=== PATIENT | female | born 1940 | race Caucasian/White ===

== ENCOUNTER 2017-07-14 20:33 | Inpatient (IN) | payer MEDICARE ==
[~2017-07-14] VITALS: Ht 154.9 cm; Wt 55.4 kg
[~2017-07-14 20:33] MED LIST: ALLO100T PO; ASPI81TA2 PO; CARI350T PO; CARI350T27 PO; CHOL100040 PO; COLC0.6T69 PO; CYAN250010 PO; DICL100G3 TP; DIPH25CA83 PO; ESZO2TAB30 PO; GABA-532 PO; LEVO88TA5 PO; LOSA-22 PO; METO-302 PO; OMEG500C PO; OMEP20CA10 PO; ROSU5TAB PO
--- NOTE | 2017-07-14 20:37 | NUR ---
BIBRA FROM HOME DT LEFT FOOT PAIN SP TRIPPED 1500 TODAY. DENIES HITTING HEAD. LEFT FOOT NOTED WITH SLIGHT SWELLING, PAIN SCALE OF 6/10,ACHING. VSS.
--- NOTE | 2017-07-14 20:40 | NUR ---
DR REECE AT BEDSIDE FOR EVAL.
--- NOTE | 2017-07-14 20:57 | NUR ---
SALVAGE CLERK AT BEDSIDE FOR BLOOD DRAW.
[2017-07-14] MEDS ORDERED: ACETAMINOPHEN ES 500 MG TABLET ONE (20:59)
[2017-07-14] MEDS ORDERED: ACETAMINOPHEN ES 500 MG TABLET PO ONE (21:00)
[2017-07-14 21:01] LABS: BASOPHILS % (AUTO) 0.4 % (0.0-2.0); EOSINOPHILS # (AUTO) 0.1 /CMM (0.0-0.7); EOSINOPHILS % (AUTO) 0.9 % (0.0-6.0); HEMATOCRIT 43 % (33-45); HEMOGLOBIN 14.6 g/dL (11.5-14.8); LYMPHOCYTES # (AUTO) 1.8 /CMM (0.8-4.8); LYMPHOCYTES % (AUTO) 17.1 % (20.0-44.0); MEAN CORPUSCULAR HEMOGLOBIN 31 PG (26.0-33.0); MEAN CORPUSCULAR HGB CONC 34 g/dl (31.0-36.0); MEAN CORPUSCULAR VOLUME 90 fL (82-100); MONOCYTES # (AUTO) 0.9 /CMM (0.1-1.30); MONOCYTES % (AUTO) 8.8 % (2.0-12.0); NEUTROPHILS # (AUTO) 7.6 /CMM (1.8-8.9); NEUTROPHILS % (AUTO) 72.8 % (43.0-81.0); PLATELET COUNT (AUTO) 172 /CMM (150-450); RDW COEFFICIENT OF VARIATION 11.4 (11.5-15.0); RED BLOOD CELL COUNT(AUTO) 4.77 MIL/uL (4.0-5.2); WHITE BLOOD COUNT (AUTO) 10.4 K/uL (4.3-11.0)
--- NOTE | 2017-07-14 21:06 | NUR ---
RADIOLOGY AT BEDSIDE FOR R FOOT XRAY.
[2017-07-14 21:10] LABS: CALCIUM, SERUM 9.9 mg/dL (8.5-10.1); CARBON DIOXIDE 26 mmol/L (21-32); CHLORIDE 104 mmol/L (98-107); CREATININE 1.4 mg/dL (0.6-1.3); GLUCOSE 88 mg/dL (74-106); POTASSIUM 4.1 mmol/L (3.5-5.1); SODIUM SERUM 139 mmol/L (136-145); UREA NITROGEN, BLOOD 23 mg/dL (7-18)
[2017-07-14] MEDS ORDERED: CARISOPRODOL 350 MG TABLET ONE (22:15)
--- NOTE | 2017-07-14 22:29 | NUR ---
CARLOS BROOKS LT CONTACT # [phone]
[2017-07-14] MEDS ORDERED: hydrALAZINE HCL IV 20 MG VIAL IV ONE (22:30)
[2017-07-14] MEDS ORDERED: CARISOPRODOL 350 MG TABLET PO ONE (22:30)
[2017-07-14] MEDS ORDERED: hydrALAZINE HCL 10 MG TABLET PO ONE (22:30)
[2017-07-14] MEDS ORDERED: hydrALAZINE HCL IV 20 MG VIAL ONE (22:32)
--- NOTE | 2017-07-14 22:41 | NUR ---
REPORT GIVEN TO GEM. PT AWAITING TRANSFER TO FLOOR.
--- NOTE | 2017-07-14 23:10 | NUR ---
ADMISSION NOTES: RECEIVED REPORT FROM PRINCE, PT CAME S/P TRIP AND FALL, BROUGHT TO THE UNIT VIA STRETCHER, PT NOTED TO HAVE LEFT FOOT CAST IN PLACED. ON RA RESPIRATION EVEN AND UNLABORED, LEFT HAND G20 PATENT AND FLUSHING WELL, ON HL. SON AT BED SIDE, , PER SON HE WILL BRING PAPER WORKS AND MEDICATION LIST IN AM (UPDATED LIST), ORIENTED PT TO UNIT POLICY AND HOURLY ROUNDING, VS TAKEN AND RECORDED, PLACED ON TELE MONITOR, SAFETY PRECAUTIONS FOR FALL INITIATED CALL LIGHT IN REACH, WILL CONTINUE TO MONITOR
[2017-07-14 23:15] VITALS: BP 189/84
--- NOTE | 2017-07-14 23:15 | NUR ---
RN NOTES: A/O X3 WITH FORGETFULNESS AT TIMES, SKIN ASSESSMENT PERFORMED NO SKIN ISSUES NOTED ASIDE FROM LEFT FOOT WITH CAST, INVENTORY OF BELONGING COMPLETED BY TRAN STOVER
--- NOTE | 2017-07-14 23:25 | NUR ---
MD AT BED SIDE: DR HUBER CAME TO SEE THE PT, DID H&P, DISCUSS WITH THE PT PLAN OF [place], FOR ORTHO CONSULT IN AM, AND ALSO FOR REHAB PLACEMENT, ALSO RELAYED TO MD REGARDING BP OF PT 189/84 HR 59 RR 18 94% ON RA, PT RECEIVED APRESOLINE 5MG IV IN ER AT 2235, PER MD HE WILL ORDER MEDICATION.
[2017-07-14 23:30] VITALS: BP 189/84
--- NOTE | 2017-07-14 23:40 | NUR ---
REFUSAL FRO SCD: PT REFUSED SCD, EDUCATION PROVIDED TO THE PT, ALSO PT INSISTED TO USE BED SIDE COMMODE SHE STATED SHE CANNOT PEE IN THE BED HOPPER, INFORMED PT NOT TO PUT ANY WEIGHT ON HER LEFT FOOT, ASSISTED TO COMMODE WITH HELP OF 2CNA
--- NOTE | 2017-07-15 00:30 | NUR ---
RN NOTES: CONTACTED DR HUBER PT REQUESTING FOR BENADRYL FOR SLEEP, SHE STATED AMBIEN DOESNT HELP HER TO PUT HER TO SLEEP, FOR SOME REASON THIS MEDICATION WAS HELD BY , WILL CONTACT OPERATION SUPERVISOR [facility] FOR SLEEPING PILL
--- NOTE | 2017-07-15 01:36 | NUR ---
RN NOTES: DR HUBER DIDNT CALL BACK, CONTACTED [facility] AGAIN, PT REALLY INSISTING TO GET BENADRYL, HOWEVER UNTIL NOW I HAVE NO ADMIT ORDERS ALTHOUGH DID MED RECON
--- NOTE | 2017-07-15 01:39 | NUR ---
RN NOTES: RECEIVED CALL FROM DR HUBER, RELAYED PT'S CONCERN TO GET SLEEPING PILL, PER TOKAY TO GIVE BENADRYL 25MG PO TONIGHT,
[2017-07-15] MEDS ORDERED: diphenhydrAMINE HCL 25 MG CAPSULE ONE (01:43)
[2017-07-15] MEDS ORDERED: diphenhydrAMINE HCL ELIX 25 MG/10 ML UDC PO PRN (02:00)
[2017-07-15 08:00] VITALS: BP 181/81
[2017-07-15] MEDS ORDERED: Medication Not On Formulary EA (Omeprazole 20 MG) PO SCH (09:00)
[2017-07-15] MEDS ORDERED: CYANOCOBALAMIN 500 MCG TABLET PO SCH (09:30)
[2017-07-15] MEDS: LEVOTHYROXINE SODIUM 88 MCG TABLET PO SCH (09:32)
[2017-07-15] MEDS: GABAPENTIN 100 MG CAPSULE PO SCH ×2 (09:32→17:40)
[2017-07-15] MEDS: ASPIRIN 81 MG TAB.CHEW PO SCH (09:33)
[2017-07-15] MEDS: ALLOPURINOL 100 MG TABLET PO SCH (09:33)
[2017-07-15] MEDS: METOPROLOL SUCCINATE 25 MG TAB.SR.24H PO SCH (09:36)
[2017-07-15] MEDS: CHOLECALCIFEROL 1,000 UNIT TABLET (VIT D3) PO SCH (09:38)
[2017-07-15] MEDS: LOSARTAN/HCTZ 50-12.5MG/ 1 EA TABLET PO SCH (09:39)
[2017-07-15] MEDS: CARISOPRODOL 350 MG TABLET PO SCH (09:39)
[2017-07-15] MEDS: COLCHICINE 0.6 MG TABLET PO SCH (10:45)
--- NOTE | 2017-07-15 11:11 | NUR ---
MS RN OPENING NOTES SYSTEM WAS DOWN THIS MORNING. SEE OPENING NOTES ON THE CHART
[2017-07-15 12:00] VITALS: BP 162/71
[2017-07-15 16:00] VITALS: BP 137/73
--- NOTE | 2017-07-15 19:04 | NUR ---
MS RN CLOSING NOTES PATIENT RESTING IN BED AT MODERATE HIGH BACKREST POSITION WITH SON AT BEDSIDE. A/O X3 AND VERBALLY RESPONSIVE. SEEN BY DR CINDY JAUREGUI THIS AFTERNOON WITH ORDER FOR CAM WALKER FRACTURE BOOT FOR LEFT FOOT AND PHYSICAL THERAPY TOMORROW. PT CAN BE D'CD HOME IF ABLE TO WALK WITH PHYSICAL THERAPY TOMORROW. ON ROOM AIR, NO SOB NOTED. IV ACCESS ON LEFT HAND INTACT AND PATENT, SL LOCK ONLY. CALL LIGHT WITHIN REACH. BED LOW AND LOCKED. ALL NEEDS AND CARE ATTENDED WELL. WILL ENDORSED TO BIN TRIPPER OPERATOR NURSE FOR SOPHIE.
--- NOTE | 2017-07-15 19:35 | NUR ---
RN OPENING NOTES RECEIVED REPORT FROM DAYSHIFT H[facility]ENCIA [place]. FOUND Pt AWAKE, RESTING IN BED WATCHING TV. SON VISITING AT BEDSIDE. Pt IS A/OX3, FORGETFUL AT TIMES. NO S/S OF ACUTE DISTRESS OR SOB NOTED. HAS LT FOOT CAST IN PLACE. NO C/O PAIN AT THIS TIME. IV ACCESS ON AND #20G, SL. SAFETY MEASURES IN PLACE. BED LOW, LOCKED, HOB ELEVATED, SIDE RAILS UP, CALL LIGHT AND BEDSIDE TABLE WITHIN REACH. WILL CONTINUE TO MONITOR Pt THROUGHOUT THE NIGHT FOR SAFETY.
[2017-07-15 20:00] VITALS: BP 161/75
--- NOTE | 2017-07-15 20:01 | NUR ---
Met with patient,she is alert and oriented. She lives alone in a single level dwelling. Prior to admission, she ambulate with a cane, she is indepedent with adl's. She own a cane, shower chair and handicapped bathroom/toilet.She has no homehealth reported. Her pcp is Dr.David Magallanes. She has good family support. She plan to return home,her son Jose [phone] and daughter Li [phone] can provide ride home upon discharge. Addendum: 07/15/17 at 2001 by MIGUEL FONG RN Amended: Links added.
[2017-07-15] MEDS: DICLOFENAC SODIUM 1 GM TP SCH (21:07)
[2017-07-15] MEDS: FATTY ACIDS PO SCH (21:07)
[2017-07-15] MEDS: OMEGA PO SCH (21:07)
[2017-07-15] MEDS ORDERED: ESZOPICLONE PO SCH (22:00)
[2017-07-15] MEDS ORDERED: CARISOPRODOL 350 MG TABLET PO SCH (22:00)
[2017-07-15] MEDS ORDERED: ATORVASTATIN 10 MG TABLET PO SCH (22:00)
[2017-07-15] MEDS ORDERED: ESCITALOPRAM OXALATE (10 MG) 10 MG TABLET PO SCH (22:00)
[2017-07-15] MEDS ORDERED: MELATONIN 5 MG PO PRN (22:00)
[2017-07-15] MEDS ORDERED: GABAPENTIN 100 MG CAPSULE PO SCH (22:00)
--- NOTE | 2017-07-16 06:45 | NUR ---
RN CLOSING NOTES NO SIGNIFICANT CHANGES NOTED DURING THE SHIFT. NO S/S OF ACUTE DISTRESS OR SOB NOTED DURING THE NIGHT. ALL NEEDS MET AND ATTENDED TO. SAFETY MEASURES IN PLACE. WILL ENDORSE TO DAYSHIFT RN FOR Pt's SOPHIE.
--- NOTE | 2017-07-16 07:05 | NUR ---
MS RN OPENING NOTES RECEIVED PT FROM NIGHTSHIFT NURSE IN STABLE CONDITION. PT IS A/O X3. NO SOB OR SIGNS OF DISTRESS NOTED. BREATHING IS EVEN AND UNLABORED. PT DENIES ANY PAIN AT THIS TIME. IV PRESENT ON LEFT HAND 20G. IV IS PATENT AND INTACT. NO REDNESS OR SIGNS OF INFILTRATION NOTED. SPLINT REMAINS IN SUPPORT OF LEFT FOOT WE ARE CURRENTLY AWAITING BOOT AND CAM WALKER. BED IN LOW LOCKED POSITION, SIDE RAILS UP X3, CALL LIGHT WITHIN REACH, BED ALARM ON. WILL CONTINUE TO MONITOR.
[2017-07-16] MEDS ORDERED: PANTOPRAZOLE 40 MG TABLET.DR PO SCH (07:30)
[2017-07-16 08:00] VITALS: BP 193/75
[2017-07-16] MEDS: FATTY ACIDS PO SCH (09:00)
[2017-07-16] MEDS: OMEGA PO SCH (09:00)
[2017-07-16] MEDS: LEVOTHYROXINE SODIUM 88 MCG TABLET PO SCH (09:29)
[2017-07-16] MEDS: ALLOPURINOL 100 MG TABLET PO SCH (09:29)
[2017-07-16] MEDS: CHOLECALCIFEROL 1,000 UNIT TABLET (VIT D3) PO SCH (09:29)
[2017-07-16] MEDS: ASPIRIN 81 MG TAB.CHEW PO SCH (09:30)
[2017-07-16] MEDS: CARISOPRODOL 350 MG TABLET PO SCH (09:30)
[2017-07-16 09:31] VITALS: BP 195/77
[2017-07-16] MEDS: LOSARTAN/HCTZ 50-12.5MG/ 1 EA TABLET PO SCH (09:31)
[2017-07-16] MEDS: GABAPENTIN 100 MG CAPSULE PO SCH (09:31)
[2017-07-16] MEDS: METOPROLOL SUCCINATE 25 MG TAB.SR.24H PO SCH (09:31)
[2017-07-16] MEDS: DICLOFENAC SODIUM 1 GM TP SCH (09:32)
[2017-07-16] MEDS: COLCHICINE 0.6 MG TABLET PO SCH (09:32)
--- NOTE | 2017-07-16 13:38 | NUR ---
MS RN CLOSING NOTES PT WAS DISCHARGED FROM UNIT IN STABLE CONDITION. ALL NEEDS WERE MET DURING SHIFT AND ORDERS CARRIED OUT ACCORDINGLY. PT. LEFT WITH CAM BOOT ALONG WITH A WHEELCHAIR RENTED BY HER SON CECILIA. PT AND HER FAMILY WERE MADE AWARE THAT HOME HEALTH WILL COME TO VISIT THEM ON TUESDAY PER CASE MANAGEMENT. PT VERBALIZED UNDERSTANDING OF ALL DISCHARGE INSTRUCTIONS AND SIGNED ALL DISCHARGE PAPERWORK. ALL BELONGINGS AND MEDICATIONS WERE TAKEN WITH THE PT.
[2017-07-16] MEDS ORDERED: CYANOCOBALAMIN 500 MCG TABLET PO SCH (16:00)
== END 2017-07-16 13:37 | disposition home health service (06) | DRG 563 ==
LOC: ER 20:38 → MED 23:05
PROVIDERS: ADMIT Internal Medicine; ATTEND Internal Medicine
DX: S92.355A Nondisplaced fracture of fifth metatarsal bone, left foot, initial encounter for closed fracture (principal); I69.354 Hemiplegia and hemiparesis following cerebral infarction affecting left non-dominant side; E11.9 Type 2 diabetes mellitus without complications; W01.0XXA Fall on same level from slipping, tripping and stumbling without subsequent striking against object, initial encounter; I10 Essential (primary) hypertension; E78.5 Hyperlipidemia, unspecified; E03.9 Hypothyroidism, unspecified; M10.9 Gout, unspecified; F03.90 Unspecified dementia, unspecified severity, without behavioral disturbance, psychotic disturbance, mood disturbance, and anxiety; G47.00 Insomnia, unspecified; Y93.9 Activity, unspecified; Y92.009 Unspecified place in unspecified non-institutional (private) residence as the place of occurrence of the external cause
CPT/HCPCS: 36415; 73630-TC; 80048-TC; 85025-TC; 97116-TC; 97530-TC; A4606; J0360; Q0163; Z7610

== ENCOUNTER 2019-10-02 14:48 | Inpatient (IN) | payer MEDICARE, OTHER ==
[~2019-10-02] VITALS: Ht 154.9 cm; Wt 67.1 kg
[~2019-10-02 14:48] MED LIST changes: +ASPI-1169 PO; -ASPI81TA2 PO; +COLC0.6T67 PO; -COLC0.6T69 PO; +DICL100G16 TP; -DICL100G3 TP; -ESZO2TAB30 PO; -GABA-532 PO; -METO-302 PO; +METO25TA4 PO; +OMEP-293 PO; -OMEP20CA10 PO
[2019-10-02] MEDS ORDERED: IV NS 0.9% 1,000 ML BAG IV ONE (15:30)
[2019-10-02] MEDS ORDERED: ZOLP5TAB8 PO (15:33)
[2019-10-02] MEDS ORDERED: CYAN100096 PO (15:33)
[2019-10-02] MEDS ORDERED: IRBE75TA11 PO (15:33)
[2019-10-02] MEDS ORDERED: CARV3.122 PO (15:33)
[2019-10-02] MEDS ORDERED: AMLO2.5T4 PO (15:33)
--- NOTE | 2019-10-02 15:45 | NUR ---
[id number] FRM HOME. WEAK AND DIZZY AFTER BM 1 1/2 AGO. ON ROOM AIR, BREATHING EVENLY AND UNLABORED. CONNECTED TO THE MONITOR AND PULSE OX. KEPT COMFORTABLE, WILL CONTINUE TO MONITOR ACCORDINGLY.
--- NOTE | 2019-10-02 15:49 | NUR ---
wheeled patient via rney for ct scan
--- NOTE | 2019-10-02 16:00 | NUR ---
patient came back from ct scan
[2019-10-02 16:09] LABS: BASOPHILS # (AUTO) 0.1 /CMM (0.0-0.2); BASOPHILS % (AUTO) 0.6 % (0.0-2.0); EOSINOPHILS % (AUTO) 1.8 % (0.0-6.0); HEMATOCRIT 41 % (33-45); HEMOGLOBIN 13.7 g/dL (11.5-14.8); LYMPHOCYTES # (AUTO) 1.3 /CMM (0.8-4.8); LYMPHOCYTES % (AUTO) 13.5 % (20.0-44.0); MEAN CORPUSCULAR HGB CONC 33 g/dl (31.0-36.0); MEAN CORPUSCULAR VOLUME 92 fL (82-100); MONOCYTES # (AUTO) 0.6 /CMM (0.1-1.30); MONOCYTES % (AUTO) 6.2 % (2.0-12.0); NEUTROPHILS # (AUTO) 7.5 /CMM (1.8-8.9); NEUTROPHILS % (AUTO) 77.9 % (43.0-81.0); PLATELET COUNT (AUTO) 176 /CMM (150-450); RED BLOOD CELL COUNT(AUTO) 4.52 MIL/uL (4.0-5.2); WHITE BLOOD COUNT (AUTO) 9.6 K/uL (4.3-11.0)
[2019-10-02 16:10] LABS: CALCIUM, SERUM 9.1 mg/dL (8.5-10.1); CARBON DIOXIDE 25 mmol/L (21-32); CHLORIDE 108 mmol/L (98-107); GLUCOSE 129 mg/dL (74-106); POTASSIUM 4.7 mmol/L (3.5-5.1); SODIUM SERUM 141 mmol/L (136-145); UREA NITROGEN, BLOOD 21 mg/dL (7-18)
[2019-10-02 16:11] LABS: CREATININE 1.6 mg/dL (0.6-1.3)
[2019-10-02 16:12] LABS: ALBUMIN 3.1 g/dL (3.4-5.0); BILIRUBIN,DIRECT 0.1 mg/dL (0.0-0.2); BILIRUBIN,TOTAL 0.6 mg/dL (0.2-1.0); TOTAL PROTEIN, SERUM 6.3 g/dL (6.4-8.2)
--- NOTE | 2019-10-02 16:16 | NUR ---
CALLED FOR TELE BED
--- NOTE | 2019-10-02 16:22 | NUR ---
CALLED [facility] TO HAVE IMAGES READ
[2019-10-02 16:35] LABS: THYROID STIMULATING HORMONE 8.487 uIU/mL (0.358-3.74)
--- NOTE | 2019-10-02 17:02 | NUR ---
CALLED [facility]
--- NOTE | 2019-10-02 17:32 | NUR ---
[facility] BED 115-1
[2019-10-02] MEDS ORDERED: IV NS 0.9% 1,000 ML IV PRN (18:04)
--- NOTE | 2019-10-02 18:24 | NUR ---
wheeled patient via gurney going to room 115-1. RN at bedside to assume care
[2019-10-02 18:28] VITALS: BP 154/63
[2019-10-02] MEDS ORDERED: MAG HYDROX/AL HYDROX/SIMETH 30 ML UDC PO PRN (18:30)
[2019-10-02] MEDS ORDERED: Z GUARD REMEDY 2 OZ OINT TP PRN (18:30)
[2019-10-02] MEDS ORDERED: ACETAMINOPHEN 325 MG TABLET PO PRN (18:30)
[2019-10-02] MEDS ORDERED: ZOLPIDEM TARTRATE 5 MG TABLET PO PRN (18:30)
[2019-10-02] MEDS ORDERED: MAGNESIUM HYDROXIDE 30 ML UDC PO PRN (18:30)
[2019-10-02] MEDS ORDERED: HYDROCODONE/APAP 5/325MG 1 EACH TABLET PO PRN (18:30)
[2019-10-02] MEDS ORDERED: ONDANSETRON HCL/PF 4 MG/2 ML VIAL IVP PRN (18:30)
--- NOTE | 2019-10-02 19:00 | NUR ---
OCEANOLOGIST OPENING NOTES RECEIVED PATIENT IN BED, AWAKE, A/OX4, ABLE TO MAKE NEEDS KNOWN, FAMILY AT BEDSIDE. PER PT FAMILY, PATIENT TENDS TO BE FORGETFUL. PER AM RN, HE RECEIVED THE PATIENT FROM ER AT 1830. ON TELE MONITOR SINUS CHEVY WITH HR 59. ON ROOM AIR, TOLERATING WELL, NO RESPIRATORY DISTRESS NOTED. PATIENT DENIES SOB/PAIN AT THE MOMENT. IV SITE RIGHT HAND 22G, FLUSHING AND PATENT, S/L. SAFETY MEASURES IN PLACE; BED IS LOCKED AND IN LOWEST POSITION, CALL LIGHT IN REACH, SIDE RAILS UP X2, BED ALARM ON. WILL ATTEND TO HOSPITALIST ADMITTING ORDERS. WILL CONTINUE TO MONITOR PT CLOSELY.
--- NOTE | 2019-10-02 19:50 | NUR ---
POTATO PEELER NOTES PAGED HABITAT BIOLOGIST HOSPITALIST REGARDING PATIENT MED RECON. AWAITING FOR RESPONSE. ALSO, PATIENT WISHES TO BE FULL CODE.
[2019-10-02 20:00] VITALS: BP 137/62
[2019-10-02] MEDS ORDERED: ATORVASTATIN 10 MG TABLET PO SCH (22:00)
[2019-10-03] VITALS: BP 151/72
[2019-10-03 04:00] VITALS: BP 158/71
[2019-10-03 06:59] LABS: BASOPHILS % (AUTO) 0.6 % (0.0-2.0); EOSINOPHILS % (AUTO) 2.3 % (0.0-6.0); HEMATOCRIT 38 % (33-45); HEMOGLOBIN 12.6 g/dL (11.5-14.8); LYMPHOCYTES % (AUTO) 28.8 % (20.0-44.0); MEAN CORPUSCULAR HGB CONC 34 g/dl (31.0-36.0); MEAN CORPUSCULAR VOLUME 90 fL (82-100); MONOCYTES # (AUTO) 0.5 /CMM (0.1-1.30); NEUTROPHILS # (AUTO) 4.1 /CMM (1.8-8.9); NEUTROPHILS % (AUTO) 60.3 % (43.0-81.0); PLATELET COUNT (AUTO) 143 /CMM (150-450); RED BLOOD CELL COUNT(AUTO) 4.15 MIL/uL (4.0-5.2); WHITE BLOOD COUNT (AUTO) 6.8 K/uL (4.3-11.0)
--- NOTE | 2019-10-03 07:01 | NUR ---
AGILE SCRUM MASTER CLOSING NOTES PATIENT RESTING IN BED, AWAKE, A/OX3-4, WITH EPISODES OF CONFUSION. ON TELE MONITOR SINUS RHYTHM WITH HR 60'S. ON ROOM AIR, TOLERATING WELL, NO RESPIRATORY DISTRESS NOTED. PATIENT DENIES SOB/PAIN AT THE MOMENT. IV SITE RIGHT FA 22G, FLUSHING AND PATENT, WITH ON GOING 0.9% NS RUNNING AT 75ML/HR, NO INFILTRATION NOTED. SAFETY MEASURES IN PLACE; BED IS LOCKED AND IN LOWEST POSITION, CALL LIGHT IN REACH, SIDE RAILS UP X2, BED ALARM ON. WILL CONTINUE TO MONITOR PT. WILL ENDORSE TO AM RN FOR SOPHIE.
[2019-10-03 07:13] LABS: CALCIUM, SERUM 8.6 mg/dL (8.5-10.1); CREATININE 1.2 mg/dL (0.6-1.3); MAGNESIUM 1.6 mg/dL (1.8-2.4); PHOSPHORUS 2.5 mg/dL (2.5-4.9); POTASSIUM 3.7 mmol/L (3.5-5.1)
[2019-10-03] MEDS ORDERED: LEVOTHYROXINE SODIUM 88 MCG TABLET PO SCH (07:30)
[2019-10-03] MEDS ORDERED: PANTOPRAZOLE 40 MG TABLET.DR PO SCH (07:30)
--- NOTE | 2019-10-03 07:30 | NUR ---
CROP PRODUCTION ADVISOR OPENING NOTES RECEIVED PT RESTING IN BED. AWAKE, AOX4, IN STABLE CONDITION. PATIENT IS ON TELE MONITOR RUNNING SINUS CHEVY AND SINUS RHYTHM. LOWEST HR DURING NIGHT WAS 58BPM. ON ROOM AIR, TOLERATING WELL. 02 SATURATION AT 100%, NO S/S OF RESPIRATORY DISTRESS NOTED. LUNG SOUNDS ARE DIMINISHED. NO COMPLAINTS OF SOB OR CHEST PAIN AT THIS TIME. IV SITE ON RIGHT HAND 22 GAUGE, PATENT, INTACT, AND FLUSHED WELL. NO S/S OF INFECTION NOTED. SAFETY MAINTAINED. CALL LIGHT WITHIN REACH. WILL CONTINUE TO MONITOR.
[2019-10-03 08:00] VITALS: BP 142/55
[2019-10-03] MEDS ORDERED: ALLOPURINOL 100 MG TABLET PO SCH (09:00)
[2019-10-03] MEDS ORDERED: CARVEDILOL 3.125 MG TABLET PO SCH (09:00)
[2019-10-03] MEDS ORDERED: AMLODIPINE BESYLATE 2.5 MG TABLET PO SCH (09:00)
[2019-10-03] MEDS ORDERED: ASPIRIN 81 MG TAB.CHEW PO SCH (09:00)
--- NOTE | 2019-10-03 11:00 | NUR ---
CONSTRUCTION COORDINATOR ROUNDING NOTES ROUNDED WITH DR SINHA PT IN STABLE CONDITION. ORDERED TO DISCHARGE PATIENT AFTER CAROTID DUPLEX IMAGING RESULTS ARE IN. WILL CONTINUE TO MONITOR.
[2019-10-03] MEDS ORDERED: Magnesium 1GM/D5W 100ML PREMIX 100 ML IV SCH (11:30)
[2019-10-03 12:00] VITALS: BP 133/52
--- NOTE | 2019-10-03 14:54 | NUR ---
CALLED [facility] ([facility]) FOR RADIOLOGIST TO READ THE CAROTID EXAM STUDY.
--- NOTE | 2019-10-03 15:30 | NUR ---
SECONDS INSPECTORMANAGER SOCIAL SERVICES NOTES WAS AT [place] WHEN DR ORDERED TO DISCHARGE PATIENT HOME. CHARGE NURSE SHELBY HELPED PREPARE DISCHARGE PAPERWORK. PATIENT IS BEING DISCHARGED HOME, IS AT BEDSIDE TO ACCOMMODATE HER. WILL BE GOING HOME VIA PRIVATE TRANSPORT, IS DRIVING HER HOME. DISCHARGE INSTRUCTIONS WERE PROVIDED TO THE PATIENT. ALL FORMS SIGNED AND ORIGINAL COPY PLACED IN THE CHART. EVERYTHING EXPLAINED TO PATIENT, ALL QUESTIONS WERE ANSWERED. PATIENT IS TAKEN OUTSIDE VIA WHEELCHAIR BY ME.
== END 2019-10-03 16:02 | disposition home or self-care (01) | DRG 640 ==
LOC: ER 14:51 → TELE1 17:38
PROVIDERS: ADMIT Student in an Organized Health Care Education/Training Program; ATTEND Student in an Organized Health Care Education/Training Program
DX: E86.0 Dehydration (principal); N17.0 Acute kidney failure with tubular necrosis; I69.354 Hemiplegia and hemiparesis following cerebral infarction affecting left non-dominant side; E78.5 Hyperlipidemia, unspecified; E11.22 Type 2 diabetes mellitus with diabetic chronic kidney disease; N18.9 Chronic kidney disease, unspecified; M10.9 Gout, unspecified; I12.9 Hypertensive chronic kidney disease with stage 1 through stage 4 chronic kidney disease, or unspecified chronic kidney disease; E86.1 Hypovolemia; E03.9 Hypothyroidism, unspecified; G47.00 Insomnia, unspecified; Z91.19 Patient's noncompliance with other medical treatment and regimen; Z79.82 Long term (current) use of aspirin; I13.10 Hypertensive heart and chronic kidney disease without heart failure, with stage 1 through stage 4 chronic kidney disease, or unspecified chronic kidney disease; F03.90 Unspecified dementia, unspecified severity, without behavioral disturbance, psychotic disturbance, mood disturbance, and anxiety; Z90.5 Acquired absence of kidney; R00.1 Bradycardia, unspecified; I95.9 Hypotension, unspecified; T46.5X5A Adverse effect of other antihypertensive drugs, initial encounter; Y92.009 Unspecified place in unspecified non-institutional (private) residence as the place of occurrence of the external cause
CPT/HCPCS: 36415; 70450-TC; 71045-TC; 80048-TC; 80061-TC; 80076-TC; 82962-TC; 83735-TC; 84100-TC; 84439-TC; 84443-TC; 84484-TC; 85025-TC; 87081-TC; 93307-TC; 93880-TC; 97116-TC; 97530-TC; G0378; J3475; J7030